=== PATIENT | male | born 2000 | race African-American/Black ===

== ENCOUNTER 2019-07-15 14:25 | Emergency (ER) | payer OTHER ==
[~2019-07-15] VITALS: Ht 180.3 cm; Wt 83.9 kg
--- NOTE | 2019-07-15 14:52 | ED Lower Extremity ---
General Chief Complaint: Lower Extremity Stated Complaint: LT TOE INJ Source: patient Exam Limitations: no limitations History of Present Illness Date Seen by Provider: Jul 15, 2019 Time Seen by Provider: 14:40 Initial Comments The patient is a pleasant 18-year-old male who presents for evaluation of a left great toe injury. He states that he injured it 2 weeks ago. 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 The pain is limiting his running lately. He cannot remember being stepped on her jamming the toe but when he extends the toe, as if in a running position, he has pain. He has been wrapping the toe and trying to play through the pain but is limited when running. He is alert and oriented 4, calm, and appears to be in no distress at this time. His pain is primarily over the medial left great toe at the base of the metatarsophalangeal joint and on the flexor surface. Allergies and Home Medications Allergies Coded Allergies: No Known Drug Allergies (Unverified , 07/15/19) Patient Home Medication List Home Medication List Reviewed: Yes Review of Systems Constitutional: no symptoms reported EENTM: no symptoms reported Respiratory: no symptoms reported Cardiovascular: no symptoms reported Gastrointestinal: no symptoms reported Genitourinary: no symptoms reported Musculoskeletal: joint pain (left great toe) Skin: no symptoms reported Psychiatric/Neurological: No Symptoms Reported All Other Systems Reviewed Negative Unless Noted: Yes Past Zdrajbc-Vglslz-Qsogzd Hx Past Med/Social Hx: Reviewed Nursing Past Med/Soc Hx Physical Exam Vital Signs Vital Signs - First Documented 07/15/19 14:30 Temp 98.3 Pulse 60 Resp 18 B/P (MAP) 107/70 Pulse Ox 98 Capillary Refill : Height, Weight, BMI Height: '" Weight: lbs. oz. 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 Advised orthopedic follow-up prior to clearance for additional sports activities. The patient will go home with a walking shoe. Orthopedic follow-up provided. 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 Diagnostic Imaging Comments [facility]. [place], [place] NAME: RUPESH GUEVARA [facility] REC#: [id number] PT STATUS: REG ER : 2000 PHYSICIAN: RENEE PUENTES DO ADMIT DATE: 07/15/19/ER FS Draft Date of Exam:07/15/19 FOOT 3 VIEW LEFT INDICATION: Fall. Injury to the left great toe playing football. TIME OF EXAM: 2:33 p.m. COMPARISON: No prior studies are available for comparison. EXAMINATION: Three views of the left foot were obtained. FINDINGS: There is a subtle osseous density projected within the interphalangeal joint of the great toe, medial side. Small fracture fragment cannot be entirely excluded although definite location of the donor site is indeterminate. Alignment is normal. Metatarsals are intact. The remaining phalanges are intact. Midfoot and hindfoot are unremarkable. IMPRESSION: Questionable fracture fragment at the interphalangeal joint of the great toe, medially, as described. Acuity is indeterminate. Correlation to pain at this location is recommended. Dictated on workstation # [id number] Dict: 07/15/19 1459 Trans: 07/15/19 1517 [facility] [id number] Interpreted by: JAYLEN LOPEZ MD Electronically signed by: Departure Impression Primary Impression: Toe fracture, left Disposition: 01 HOME, SELF-CARE Condition: Stable Departure-Patient Inst. Decision time for Depature: 15:29 Referrals: NO,LOCAL PHYSICIAN (PCP/Family) Primary Care Physician Patient Instructions: Toe Fracture, Toe Injury (DC) Add. Discharge Instructions: Follow-up with orthopedics in the next 1-2 days. Do not participate in sports until cleared by orthopedics. Return to the ER for new or worsening symptoms. Work/School Note: Work Release Form Date Seen in the Emergency Department: Jul 15, 2019 Return to Work: Jul 16, 2019 Restrictions: No Sports-Until Released, Need Release from Doctor RENEE PUENTES DO Jul 15, 2019 14:52
--- NOTE | 2019-07-15 15:17 | Diagnostic Imaging Report ---
INDICATION: Fall. Injury to the left great toe playing football. TIME OF EXAM: 2:33 p.m. COMPARISON: No prior studies are available for comparison. EXAMINATION: Three views of the left foot were obtained. FINDINGS: There is a subtle osseous density projected within the interphalangeal joint of the great toe, medial side. Small fracture fragment cannot be entirely excluded although definite location of the donor site is indeterminate. Alignment is normal. Metatarsals are intact. The remaining phalanges are intact. Midfoot and hindfoot are unremarkable. IMPRESSION: Questionable fracture fragment at the interphalangeal joint of the great toe, medially, as described. Acuity is indeterminate. Correlation to pain at this location is recommended. Dictated by: Dictated on workstation # [id number]
== END 2019-07-15 15:43 | disposition home or self-care (01) ==
LOC: ER FS 14:28
DX: S92.492A Other fracture of left great toe, initial encounter for closed fracture (principal); W23.0XXA Caught, crushed, jammed, or pinched between moving objects, initial encounter; Y93.61 Activity, american tackle football
CPT/HCPCS: 73630